=== PATIENT | male | born 1985 | race Caucasian/White ===

== ENCOUNTER 2020-02-27 02:36 | Inpatient (IN) ==
--- NOTE | 2020-02-27 02:55 | Emergency Department Note ---
History of Present Illness General Chief complaint: Chest Pain Stated complaint: chest pain History of Present Illness This 34-year-old presents to the ER complaining of right lower leg pain after he passed out tonight in the bathroom Location: Right lower leg Quality: Painful Severity: Moderate Duration: Tonight Timing: Tonight Context: Patient was concerned and came in Modifying factors: better with morphine; worse with palpation Patient states he woke up from sleep with chest burning and went to the [facility] in her breast Mylanta felt nauseous and passed out. When he came to he had an obvious lower leg injury. His chest pain had resolved. Patient states he was drinking moderate amount of beers last night. Does not normally drink beer. He states he is healthy with no medical problems. Patient denies numbness, tingling, abdominal pain, dyspnea, flulike illness, localized weakness, current chest pain. Patient states his only complaint now is the right lower leg pain. EMS gave him morphine. Patient states he last ate at 7 PM yesterday and was macaroni and cheese. Patient states he had some water at 2 AM and nothing since. Home Medications Home Medications Medication Instructions Recorded Confirmed Type fluoxetine 40 mg PO DAILY 02/27/20 02/27/20 History Allergies Allergy/AdvReac Type Severity Reaction Status Date / Time Penicillins Allergy Unknown Unknown Verified 02/27/20 02:57 Past Med/Surg History Medical History (Updated 02/27/20 @ 03:30 by Zoraida Cohen PA-C) Dizziness Vitamin D deficiency Surgical History No pertinent past surgical history Family History Father Colorectal cancer Aunt Colorectal cancer Denies family history of Ulcerative colitis Social History Preferred Language: Thai Visual Impairment: No Limitations Hearing Ability: Normal Porcelain Mixer Required: No marital status: Single Current Living Situation: Alone current occupational status: employed and student current occupation: grad student Feels Safe at Home: Yes Smoking Status: Current every day smoker Tobacco Type: e-cigarettes ; Hx Alcohol Use: Yes Alcohol type: wine Alcohol Intake Frequency: Weekly Hx Substance Use: No Childhood Exposure to Second-Hand Smoke: Yes Diet Comment: Just eats meat caffeine: Yes during the past year weight has: decreased > 10 lbs Dental Care, Regularly: No Physical Activity Frequency: 1-2 Times per Week Seatbelt Use: never Sunscreen Use: No Review of Systems A total of 10 systems reviewed and were otherwise negative Physical Exam Vital Signs Vital Signs - 24 hr 02/27/20 02:39 02/27/20 02:55 02/27/20 03:11 Temperature 36.8 C Temperature Source Oral Pulse Rate 107 H Pulse Rate [Finger] 101 H Respiratory Rate 20 20 Respiratory Effort / Characteristics Non-Labored Spontaneous Respiratory Depth Normal Blood Pressure 100/63 Blood Pressure [Right Arm] 109/55 L Blood Pressure Mean 75 Blood Pressure Mean [Right Arm] 73 Pulse Oximetry 96 96 96 Oxygen Delivery Method Room Air Room Air Room Air Sepsis Action Taken by Nursing No Action Required VITALS: Vitals are noted on the nurse's note and reviewed by myself. Vital signs stable. GENERAL: Pleasant male with an obvious right lower leg injury, in no acute distress, nondiaphoretic, well-developed well-nourished. SKIN: The skin was without rashes, erythema, edema, or bruising. There is no tenting of the skin. Capillary reflex less than 2 seconds. HEAD: Normocephalic atraumatic. EARS: External auditory canals clear, tympanic membranes pearly velasco without erythema or effusion bilaterally. EYES: Pupils equal round and reactive to light and accommodation. Conjunctivae without injection, sclerae without icterus. Extraocular movements intact. NOSE: Patent, turbinates without inflammation or discharge. No sinus tenderness. MOUTH: Mucous membranes mildly dry. Pharynx without erythema or exudate. Uvula midline. Airway patent. Tongue does not deviate. NECK: Supple without nuchal rigidity. No lymphadenopathy. No thyromegaly. Cervical spine is nontender. No JVD. HEART: Regular rate and rhythm without murmurs gallops or rubs. LUNGS: Clear to auscultation bilaterally without wheezes, rales or rhonchi. No retractions or accessory muscle use. ABDOMEN: Positive bowel sounds x 4. Normal tympanic percussion. Soft, non tender, without masses or organomegaly. Longoria sign negative. No guarding or rebound tenderness. No CVA tenderness MUSCULOSKELETAL: No muscle atrophy noted. Right lower leg distal tibia with obvious fracture, tender to palpation, right knee ankle and foot nontender to palpation. Pedal pulses +2 equal present bilaterally. NEURO: Patient was alert and oriented to person place and time. Normal s ensation to light and sharp touch. No focal neurological deficits. Course Administered Medications Sodium Chloride (Nss 1000ml) 1,000 mls @ 999 mls/hr IV .Q1H1M ENMANUEL Stop: 02/27/20 04:00 Last Admin: 02/27/20 02:58 Dose: 999 mls/hr Documented by: [id number] Medical Decision Making Medical Records Attestation: I reviewed the patient's medical records. Home Medications Current Medication List: was personally reviewed by me Laboratory Data Attestation: I reviewed the patient's lab results. Result diagrams: 02/27/20 02:45 02/27/20 02:45 Lab Results 02/27/20 02/27/20 02/27/20 Range/Units 02:45 02:45 02:45 WBC 6.64 (4.8-10.8) K/uL RBC 4.16 L (4.7-6.1) M/uL Hgb 13.2 L (14.0-18.0) g/dL Hct 39.4 L (42-52) % MCV 94.7 (80-100) fL MCH 31.7 (25-34) pg MCHC 33.5 (32-36) g/dL RDW Std Deviation 45.4 (36.4-46.3) fL RDW Coeff of Maricel 13.1 (11.5-14.5) % Plt Count 282 (130-400) K/uL MPV 9.0 (7.4-10.4) fL Immature Gran % (Auto) 0.2 % Neut % (Auto) 55.4 % Lymph % (Auto) 32.4 % [place] % (Auto) 5.6 % Eos % (Auto) 5.3 % Baso % (Auto) 1.1 % Neut # (Auto) 3.69 (1.4-6.5) K/uL Lymph # (Auto) 2.15 (1.2-3.4) K/uL [place] # (Auto) 0.37 (0.11-0.59) K/uL Eos # (Auto) 0.35 (0-0.5) K/uL Baso # (Auto) 0.07 (0-0.2) K/uL Immature Gran # (Auto) 0.01 (0.00-0.02) K/uL PT 10.3 (9.0-12.0) Seconds INR 1.0 (0.9-1.1) APTT 22.3 (21.0-31.0) Seconds PTT Ratio 0.8 Sodium 139 (136-145) mmol/L Potassium 3.3 L (3.5-5.1) mmol/L Chloride 108 H (98-107) mmol/L Carbon Dioxide 22 (21-32) mmol/L Anion Gap 9.0 (3-11) BUN 12 (7-18) mg/dl Creatinine 0.95 (0.6-1.4) mg/dl Est Cr Clr Drug Dosing 131.4 ml/min Est GFR ( Amer) 120.6 Est GFR (Non-Af Amer) 104.0 BUN/Creatinine Ratio 12.8 (10-20) Glucose 144 H (70-99) mg/dl Calcium 8.2 L (8.5-10.1) mg/dl Total Bilirubin 0.6 (0.2-1) mg/dl AST 33 (15-37) U/L ALT 77 (12-78) U/L Alkaline Phosphatase 63 (45-117) U/L Troponin I < 0.015 (0-0.045) ng/ml Total Protein 6.6 (6.4-8.2) gm/dl Albumin 3.4 (3.4-5.0) gm/dl Globulin 3.2 (2.5-4.0) gm/dl Albumin/Globulin Ratio 1.1 (0.9-2) Lipase 143 (73-393) U/L Ethyl Alcohol mg/dL (0-3) mg/dl 02/27/20 Range/Units 03:08 WBC (4.8-10.8) K/uL RBC (4.7-6.1) M/uL Hgb (14.0-18.0) g/dL Hct (42-52) % MCV (80-100) fL MCH (25-34) pg MCHC (32-36) g/dL RDW Std Deviation (36.4-46.3) fL RDW Coeff of Maricel (11.5-14.5) % Plt Count (130-400) K/uL MPV (7.4-10.4) fL Immature Gran % (Auto) % Neut % (Auto) % Lymph % (Auto) % [place] % (Auto) % Eos % (Auto) % Baso % (Auto) % Neut # (Auto) (1.4-6.5) K/uL Lymph # (Auto) (1.2-3.4) K/uL [place] # (Auto) (0.11-0.59) K/uL Eos # (Auto) (0-0.5) K/uL Baso # (Auto) (0-0.2) K/uL Immature Gran # (Auto) (0.00-0.02) K/uL PT (9.0-12.0) Seconds INR (0.9-1.1) APTT (21.0-31.0) Seconds PTT Ratio Sodium (136-145) mmol/L Potassium (3.5-5.1) mmol/L Chloride (98-107) mmol/L Carbon Dioxide (21-32) mmol/L Anion Gap (3-11) BUN (7-18) mg/dl Creatinine (0.6-1.4) mg/dl Est Cr Clr Drug Dosing ml/min Est GFR ( Amer) Est GFR (Non-Af Amer) BUN/Creatinine Ratio (10-20) Glucose (70-99) mg/dl Calcium (8.5-10.1) mg/dl Total Bilirubin (0.2-1) mg/dl AST (15-37) U/L ALT (12-78) U/L Alkaline Phosphatase (45-117) U/L Troponin I (0-0.045) ng/ml Total Protein (6.4-8.2) gm/dl Albumin (3.4-5.0) gm/dl Globulin (2.5-4.0) gm/dl Albumin/Globulin Ratio (0.9-2) Lipase (73-393) U/L Ethyl Alcohol mg/dL 23.0 H (0-3) mg/dl Imaging Data Attestation: I personally reviewed and interpreted this imaging study as follows: Blood Pressure Blood Pressure Findings: Normal blood pressure MDM Narrative Prior records/ancillary studies reviewed. Triage Nursing notes reviewed. Additional history obtained from EMS. The patient's history was concerning for syncope, chest pain and lower leg injury. Differential diagnosis: Etiologies such as fracture, dislocation, vasovagal event, infection, hypoglycemia, electrolyte abnormalities, cardiac sources, intracerebral event, toxicologic, neurologic, as well as others were entertained. Physical examination: As above ER treatment provided: IV hydration with normal saline On reassessment the patient felt better. An order was placed for continuous cardiac monitoring. The monitor shows a rate of 60-1 10 with a sinus rhythm. Diagnostics interpretation by me: ECG: Ordered for chest pain and syncope EKG: Normal sinus, normal levels, no acute ST-T wave changes, rate of 104. Impression sinus tachycardia interpreted by itself I think arrhythmia is unlikely. EKG shows normal sinus rhythm with no interval abnormalities such as QT prolongation or WPW. There are no findings to suggest Brugada syndrome. Cardiac monitoring in the emergency department reveals no tachycardic or bradycardic dysrhythmia. Hypertrophic cardiomyopathy was considered but there are no clear historical elements pointing toward this. EKG is not suggestive. The QRS voltage is not extremely large and there are no suggestive Q waves. The labs revealed negative troponin. Mild anemia. Type and screen ordered Cover test ordered and pending per orthopedics request for preop for surgery Imaging studies: Chest x-ray with no acute consolidation, pneumothorax or free air per my interpretation Ankle x-ray concerning for fibular fracture and distal third tibia fracture per my interpretation Tib-fib x-ray concerning for proximal fibular fracture and distal third tibia fracture that is oblique and distracted per my interpretation Repeat tib-fib x-ray shows minimal improvement with fracture alignment per my interpretation. The leg is quite unstable and seems to fall out of alignment quite easily. HEART SCORE: Hx: high/mod/low suspicion: 0 ECG: ST depression/nonspecific changes/normal: 0 Age: Greater than 65/45-64/less than 45: 0 Risk factors: (Hypertension, hyperlipidemia, diabetes, coronary disease, tobacco use, cocaine use): 1 Troponin: Greater than 2 times normal limits/1-2 times normal limits/normal: 0 Total: 1 Consultation: A consultation was placed with Dr. Mills from orthopedics. The case was discussed and diagnostics were reviewed. The patient was admitted to his service. He is requesting a rapid Randy test so we can do surgery later this morning or early this afternoon. Splinting Indication: Right lower leg fibular and tibial fractures Location: Right lower leg Type of fx: Displaced, closed and comminuted fracture of the tib-fib and fibula Verbal consent obtained. Risks and benefits were explained with the usual customary discussion. The injured extremity was identified. The patient was prepped and measured for the placement of a stirrup and posterior Ortho-glass splint. Splint applied in the standard fashion over a layer of webril and secured using an elastic bandage. Set into a position of function. Normal neurovascular status after placement verified by me. The patient tolerated the procedure well and the care of the splint was discussed with the patient/family. No complications. This appears to be consistent with extensive right lower leg fractures with chest pain and syncope. Patient was splinted as above. Orthopedic surgery was consulted and will admit the patient for surgery later this morning. Cover test was ordered. Patient was placed n.p.o. Maintenance fluids were hung. Patient is agreeable to treatment plan of admission. By the evaluation outlined above emergent etiologies such as infection, hypoglycemia, electrolyte abnormalities, cardiac sources, intracerebral event, toxicologic, neurologic,as well as others were deemed relatively unlikely. The pt informed about the findings as listed above. All questions were answered and pleased with the treatment. The chart was completed utilizing [employer] Speech voice recognition software. Grammatical errors, random word insertions, pronoun errors, and incomplete sentences are an occassional consequence of this system due to software limitations, ambient noise, and hardware issues. Any formal questions or concerns about the content, text, or information contained within the body of this dictation should be directly addressed to the physician material assistant for clarification. Impression & Plan Fracture tibia/fibula, Chest pain, Syncope Discharge Plan Visit Data Chief Complaint: Chest Pain Stated Complaint: chest pain ED Provider: Mila Bryan ED Midlevel Provider: Zoraida Cohen Discharge Problem: Fracture tibia/fibula, Chest pain, Syncope Patient Disposition: Admitted As Inpatient Condition: Good Forms Stand Alone Forms: ECO-SAFE Prescriptions Prescriptions: No Action fluoxetine 40 mg capsule 40 mg PO DAILY RF: 0 Referrals Referrals: [place],[facility] [Primary Care Provider] - Discharge Problem: Fracture tibia/fibula Qualifiers: Encounter type: initial encounter Fracture type: closed Laterality: right Qualified Code(s): S82.201A - Unspecified fracture of shaft of right tibia, initial encounter for closed fracture Chest pain Qualifiers: Chest pain type: unspecified Qualified Code(s): R07.9 - Chest pain, unspecified
[2020-02-27 02:58] LABS: Basophils # (auto) 0.07 K/uL (0-0.2); Basophils % (auto) 1.1 %; Eosinophils # (auto) 0.35 K/uL (0-0.5); Eosinophils % (auto) 5.3 %; Hematocrit (blood only) 39.4 % (42-52); Hemoglobin 13.2 g/dL (14.0-18.0); Immature Granulocytes # (auto) 0.01 K/uL (0.00-0.02); Immature Granulocytes % (auto) 0.2 %; Lymphocytes # (auto) 2.15 K/uL (1.2-3.4); Lymphocytes % (auto) 32.4 %; Mean Corpuscular Hemoglobin 31.7 pg (25-34); Mean Corpuscular Hgb Conc 33.5 g/dL (32-36); Mean Corpuscular Volume 94.7 fL (80-100); Monocytes # (auto) 0.37 K/uL (0.11-0.59); Monocytes % (auto) 5.6 %; Neutrophils # (auto) 3.69 K/uL (1.4-6.5); Neutrophils % (auto) 55.4 %; Platelet Count 282 K/uL (130-400); RDW Coefficient of Variation 13.1 % (11.5-14.5); RDW Standard Deviation 45.4 fL (36.4-46.3); Red Blood Count 4.16 M/uL (4.7-6.1); White Blood Count 6.64 K/uL (4.8-10.8)
[2020-02-27] MEDS ORDERED: SODIUM CHLORIDE 0.9% 1000ML 1,000 ML IV SCH ×2 (03:00→03:30)
[2020-02-27 03:14] LABS: Alanine Aminotransferase 77 U/L (12-78); Albumin Level 3.4 gm/dl (3.4-5.0); Aspartate Aminotransferase 33 U/L (15-37); BUN Creatinine Ratio 12.8 (10-20); Blood Urea Nitrogen 12 mg/dl (7-18); Calcium 8.2 mg/dl (8.5-10.1); Carbon Dioxide 22 mmol/L (21-32); Chloride 108 mmol/L (98-107); Creatinine Clr Calc Pharmacy 131.4 ml/min; Est GFR (African American) 120.6; Glucose 144 mg/dl (70-99); Lipase 143 U/L (73-393); Potassium 3.3 mmol/L (3.5-5.1); Sodium 139 mmol/L (136-145)
[2020-02-27 03:17] LABS: Partial Thromboplastin Ratio 0.8; Partial Thromboplastin Time 22.3 Seconds (21.0-31.0); Prothrombin Time 10.3 Seconds (9.0-12.0)
[2020-02-27 03:19] LABS: Albumin Globulin Ratio 1.1 (0.9-2); Alkaline Phosphatase 63 U/L (45-117); Bilirubin,Total 0.6 mg/dl (0.2-1); Globulin 3.2 gm/dl (2.5-4.0); Total Protein 6.6 gm/dl (6.4-8.2); Troponin I < 0.015 ng/ml (0-0.045)
[2020-02-27] MEDS ORDERED: FAMOTIDINE 20MG/5ML IV PUSH IV STA (03:38)
[2020-02-27] MEDS ORDERED: ONDANSETRON INJ 2 MG/ML 2 ML VIAL IV PRN ×3 (03:48→17:04)
[2020-02-27] MEDS ORDERED: MAGNESIUM HYDROXIDE SUSP 30 ML UDC PO PRN ×2 (03:48→17:04)
[2020-02-27] MEDS ORDERED: ACETAMINOPHEN 325 MG TAB PO PRN (03:48)
[2020-02-27] MEDS ORDERED: ALUMINUM/MAGNESIUM SUSP 30 ML UDC PO PRN ×2 (03:48→17:04)
[2020-02-27] MEDS: POTASSIUM CHLORIDE / WTR 10 MEQ/100 ML PLCT IV SCH ×2 (03:53→04:43)
[2020-02-27] MEDS ORDERED: INFLUENZA VIRUS QUAD VACCINE 0.5 ML SYR IM ONE (05:31)
[2020-02-27] MEDS ORDERED: INFLUENZA ADMINISTRATION CHARGE ONE (05:31)
[2020-02-27] MEDS: HYDROmorphone INJ 0.5 MG/0.5 ML SYR IV PRN ×2 (05:46→21:41)
[2020-02-27] MEDS: SODIUM CHLORIDE 0.9% 1000ML 1,000 ML IV SCH ×4 (05:48→18:51)
[2020-02-27] MEDS ORDERED: CEFAZOLIN 2000MG 2,000 MG/15 ML SYR IV SCH (06:00)
--- NOTE | 2020-02-27 06:51 | XRay Report ---
XR tibia fibula RT 2V CLINICAL HISTORY: Post splint. COMPARISON: Right tibia and fibula radiographs at February 27, 2020 2:51 AM. FINDINGS: Note is again made of an acute mildly displaced proximal right fibular fracture. There is a lso an oblique mildly displaced distal right fibular fracture. Alignment of these fractures is simila r to prior exam. Note is made of a displaced oblique fracture through the mid to distal diaphysis of the right tibia. Fracture is displaced 2.3 cm. Fracture displacement is slightly increased since exam of February 27, 2020 at 2:51 AM. A cast is noted. IMPRESSION: 1. Oblique displaced fracture of the mid to distal diaphysis of the right tibia. Fracture displacemen t increased since prior exam. 2. No change in appearance of the proximal and distal right fibular fractures. ACT 112: Negative or not required by law. Electronically signed by: Raymundo Barr M.D. 02/27/2020 6:50 AM
--- NOTE | 2020-02-27 06:52 | XRay Report ---
XR chest 1V portable CLINICAL HISTORY: Chest Pain COMPARISON STUDY: No previous studies for comparison. FINDINGS: Lung volumes are normal. Lungs are clear. There is no pneumothorax or pleural effusion. Car diac size is normal. Mediastinal contours are normal. There is no evidence for pulmonary edema. IMPRESSION: No acute cardiopulmonary findings. ACT 112: Negative or not required by law. Electronically signed by: Raymundo Barr M.D. 02/27/2020 6:50 AM
--- NOTE | 2020-02-27 06:53 | XRay Report ---
XR tibia fibula RT 2V CLINICAL HISTORY: fall, pain COMPARISON: None FINDINGS: There is an acute impacted proximal right fibular neck fracture that extends into the fibu lar head. There is also an acute oblique mildly displaced fracture of the distal right fibula. Note i s made of an oblique comminuted displaced fracture of the mid to distal diaphysis of the right tibia. Fracture is displaced 1.5 cm. IMPRESSION: 1. Oblique comminuted displaced fracture of the mid to distal diaphysis of the right tibia. 2. Acute impacted proximal right fibular fracture. 3. Acute mildly displaced oblique distal right fibular fracture. ACT 112: Negative or not required by law. Electronically signed by: Raymundo Barr M.D. 02/27/2020 6:52 AM
--- NOTE | 2020-02-27 06:55 | XRay Report ---
XR ankle RT min 3V routine CLINICAL HISTORY: fall, pain COMPARISON: None FINDINGS: Noted is made of an acute oblique distal right fibular fracture. There is mild medial ankl e mortise widening. An oblique is displaced fracture of the mid to distal diaphysis of the right tibi a is partially imaged on this exam. IMPRESSION: 1. Acute oblique mildly displaced distal right fibular fracture. 2. Mild medial ankle mortise widening. 3. Partially visualized displaced diaphyseal fracture of the right tibia. ACT 112: Negative or not required by law. Electronically signed by: Raymundo Barr M.D. 02/27/2020 6:53 AM
[2020-02-27] MEDS: DOCUSATE SODIUM 100 MG CAP PO SCH ×3 (08:31→20:20)
[2020-02-27] MEDS: FLUOXETINE HCL 20 MG CAP PO SCH (08:32)
--- NOTE | 2020-02-27 08:55 | History & Physical Report ---
Date of Service February 27, 2020 Assessment & Plan (1) Fracture tibia/fibula: Performed H&P on floor with patient. Reviewed consent and will be again reviewed and signed with Dr. Duque present in preop. Patient will undergo ORIF of Right Tibia fracture with intramedullary nailing and possible ORIF of Right distal fibular fracture later today. Patient understood risks of surgery and proceeding with intervention during the COVID-19 pandemic. Currently his is asymptomatic and had COVID testing with negative result. Encounter type: initial encounter Fracture type: closed Laterality: right Qualified Code(s): S82.201A - Unspecified fracture of shaft of right tibia, initial encounter for closed fracture; S82.401A - Unspecified fracture of shaft of right fibula, initial encounter for closed fracture History of Present Illness Chief Complaint: Right lower leg pain / deformity Primary Care Provider: [facility] Patient states he woke up from sleep with chest burning and went to the bathroom to ge some Mylanta. Patient felt nauseated and passed out. When he came to he had an obvious lower leg injury. His chest pain had resolved. Patient states he was drinking moderate amount of beers last night. Does not normally drink beer. He states he is healthy with no medical problems. Patient denies numbness, tingling, abdominal pain, dyspnea, flulike illness, localized weakn ess, current chest pain. Patient states his only complaint now is the right lower leg pain. EMS gave him morphine. Patient states he last ate at 7 PM yesterday and was macaroni and cheese. Patient states he had some water at 2 AM and nothing since. Allergies Allergy/AdvReac Type Severity Reaction Status Date / Time Penicillins Allergy Unknown Unknown Verified 02/27/20 02:57 Home Medications Home Medications Medication Instructions Recorded Confirmed Type fluoxetine 40 mg PO DAILY 02/27/20 02/27/20 History Past Med/Surg History Medical History Dizziness Vitamin D deficiency Surgical History No pertinent past surgical history Family History Father Colorectal cancer Aunt Colorectal cancer Denies family history of Ulcerative colitis Social History Preferred Language: Australian Communication Ability: Effective Visual Impairment: No Limitations Hearing Ability: Normal Auditor Internal Required: No Beliefs That Will Affect Care: None marital status: Single Current Living Situation: Significant Other current occupational status: employed and student current occupation: grad student Other Information That Helps Us Care for You: No Feels Safe at Home: Yes Safety Concerns: Feels Safe At This Time Smoking Status: Current some day smoker Tobacco Type: e-cigarettes ; Do You Dip or Chew Tobacco: No ; Second Hand Exposure: No ; Tobacco Cessation Education Requested by Patient: No Hx Alcohol Use: Yes Alcohol type: beer, wine and hard liquor Alcohol Intake Frequency: Weekly Hx Substance Use: No Childhood Exposure to Second-Hand Smoke: Yes Diet Comment: Just eats meat caffeine: Yes during the past year weight has: decreased > 10 lbs Dental Care, Regularly: No Physical Activity Frequency: 1-2 Times per Week Seatbelt Use: never Sunscreen Use: No Physical Exam Constitutional: well developed, well nourished, healthy appearing and comfortable Eyes: PERRL, conjunctivae normal, anicteric sclerae EOM intact bilaterally ENMT: Throat: uvula midline No edema, erythema or exudate Respiratory: normal respiratory effort, lungs clear to auscultation Cardiovascular: RRR, no murmur, no edema Gastrointestinal (Abdomen): normal bowel sounds, soft, nontender, no hepatosplenomegaly Musculoskeletal: No muscle atrophy noted. Right lower leg distal tibia with obvious fracture with external rotation, tender to palpation over distal 1/3 of tibia and distal fibula, right knee and foot nontender to palpation. Pedal pulses +2 equal present bilaterally. NV intact. Toes mobile. Skin: no rashes, warm and dry Neurologic: CN's II-XI intact bilaterally Psychiatric: Orientation: alert and oriented x 3 Results & Data Vital Signs (Past 12 Hours) Vital Signs Temp Pulse Pulse Resp BP BP Pulse Ox 02/27/20 07:07 36.6 C 97 H 17 99/59 L 97 02/27/20 05:00 36.4 C L 108 H 14 119/66 99 02/27/20 04:30 95 H 20 96/43 L 94 02/27/20 03:50 92 H 20 92/43 L 94 02/27/20 03:11 101 H 20 109/55 L 96 02/27/20 02:55 96 02/27/20 02:39 36.8 C 107 H 20 100/63 96 Pulse Ox 02/27/20 07:07 02/27/20 05:00 99 02/27/20 04:30 02/27/20 03:50 02/27/20 03:11 02/27/20 02:55 02/27/20 02:39 Laboratory Results Lab Results 02/27/20 02/27/20 02/27/20 Range/Units 02:45 02:45 02:45 WBC 6.64 (4.8-10.8) K/uL RBC 4.16 L (4.7-6.1) M/uL Hgb 13.2 L (14.0-18.0) g/dL Hct 39.4 L (42-52) % MCV 94.7 (80-100) fL MCH 31.7 (25-34) pg MCHC 33.5 (32-36) g/dL RDW Std Deviation 45.4 (36.4-46.3) fL RDW Coeff of Maricel 13.1 (11.5-14.5) % Plt Count 282 (130-400) K/uL MPV 9.0 (7.4-10.4) fL Immature Gran % (Auto) 0.2 % Neut % (Auto) 55.4 % Lymph % (Auto) 32.4 % [place] % (Auto) 5.6 % Eos % (Auto) 5.3 % Baso % (Auto) 1.1 % Neut # (Auto) 3.69 (1.4-6.5) K/uL Lymph # (Auto) 2.15 (1.2-3.4) K/uL [place] # (Auto) 0.37 (0.11-0.59) K/uL Eos # (Auto) 0.35 (0-0.5) K/uL Baso # (Auto) 0.07 (0-0.2) K/uL Immature Gran # (Auto) 0.01 (0.00-0.02) K/uL PT 10.3 (9.0-12.0) Seconds INR 1.0 (0.9-1.1) APTT 22.3 (21.0-31.0) Seconds PTT Ratio 0.8 Sodium 139 (136-145) mmol/L Potassium 3.3 L (3.5-5.1) mmol/L Chloride 108 H (98-107) mmol/L Carbon Dioxide 22 (21-32) mmol/L Anion Gap 9.0 (3-11) BUN 12 (7-18) mg/dl Creatinine 0.95 (0.6-1.4) mg/dl Est Cr Clr Drug Dosing 131.4 ml/min Est GFR ( Amer) 120.6 Est GFR (Non-Af Amer) 104.0 BUN/Creatinine Ratio 12.8 (10-20) Glucose 144 H (70-99) mg/dl Calcium 8.2 L (8.5-10.1) mg/dl Total Bilirubin 0.6 (0.2-1) mg/dl AST 33 (15-37) U/L ALT 77 (12-78) U/L Alkaline Phosphatase 63 (45-117) U/L Troponin I < 0.015 (0-0.045) ng/ml Total Protein 6.6 (6.4-8.2) gm/dl Albumin 3.4 (3.4-5.0) gm/dl Globulin 3.2 (2.5-4.0) gm/dl Albumin/Globulin Ratio 1.1 (0.9-2) Lipase 143 (73-393) U/L Ethyl Alcohol mg/dL (0-3) mg/dl COVID-19 PCR (Negative) Blood Type Antibody Screen 02/27/20 02/27/20 02/27/20 Range/Units 03:08 03:10 03:30 WBC (4.8-10.8) K/uL RBC (4.7-6.1) M/uL Hgb (14.0-18.0) g/dL Hct (42-52) % MCV (80-100) fL MCH (25-34) pg MCHC (32-36) g/dL RDW Std Deviation (36.4-46.3) fL RDW Coeff of Maricel (11.5-14.5) % Plt Count (130-400) K/uL MPV (7.4-10.4) fL Immature Gran % (Auto) % Neut % (Auto) % Lymph % (Auto) % [place] % (Auto) % Eos % (Auto) % Baso % (Auto) % Neut # (Auto) (1.4-6.5) K/uL Lymph # (Auto) (1.2-3.4) K/uL [place] # (Auto) (0.11-0.59) K/uL Eos # (Auto) (0-0.5) K/uL Baso # (Auto) (0-0.2) K/uL Immature Gran # (Auto) (0.00-0.02) K/uL PT (9.0-12.0) Seconds INR (0.9-1.1) APTT (21.0-31.0) Seconds PTT Ratio Sodium (136-145) mmol/L Potassium (3.5-5.1) mmol/L Chloride (98-107) mmol/L Carbon Dioxide (21-32) mmol/L Anion Gap (3-11) BUN (7-18) mg/dl Creatinine (0.6-1.4) mg/dl Est Cr Clr Drug Dosing ml/min Est GFR ( Amer) Est GFR (Non-Af Amer) BUN/Creatinine Ratio (10-20) Glucose (70-99) mg/dl Calcium (8.5-10.1) mg/dl Total Bilirubin (0.2-1) mg/dl AST (15-37) U/L ALT (12-78) U/L Alkaline Phosphatase (45-117) U/L Troponin I (0-0.045) ng/ml Total Protein (6.4-8.2) gm/dl Albumin (3.4-5.0) gm/dl Globulin (2.5-4.0) gm/dl Albumin/Globulin Ratio (0.9-2) Lipase (73-393) U/L Ethyl Alcohol mg/dL 23.0 H (0-3) mg/dl COVID-19 PCR NEGATIVE (Negative) Blood Type A Positive Antibody Screen NEGATIVE Code Status & VTE Plan VTE Prophylaxis Plan VTE Prophylaxis will be ordered: Yes
[2020-02-27] MEDS: PANTOprazole 40 MG TAB PO SCH (10:27)
--- NOTE | 2020-02-27 11:22 | Anesthesiology Consultation ---
Date of Service February 27, 2020 Assessment & Plan (1) Encounter for pre-operative examination: Chart Review Chart Review: Acceptable Risk for Surgery Consults Requested none ASA ASA2 Proposed Anesthesia Anesthesia Type: General Risk / Benefits Reviewed With: PT / POA / Parent / Guardian, Accepts Plan and Informed Consent Obtained History Surgery Operation Date: 02/27/20 07:10 Proposed Procedures p Right Intramedullary Nail Tibia - Buck Duque MD s Possible Right Open Reduction Internal Fixation Fibula - Buck Duque MD Height/Weight Height: 6 ft Weight: 97.6 kg Allergies Allergy/AdvReac Type Severity Reaction Status Date / Time Penicillins Allergy Unknown Unknown Verified 02/27/20 02:57 Medications Home Medications Medication Instructions Recorded Confirmed Last Taken fluoxetine 40 mg PO DAILY 02/27/20 02/27/20 Unknown Active Medications Generic Name Dose Route Start Last Admin Trade Name Freq PRN Reason Stop Dose Admin Acetaminophen 650 mg 02/27/20 03:48 02/27/20 08:31 Tylenol PO 03/28/20 03:47 650 mg Q6H PRN Administration Fever or Headache Docusate Sodium 100 mg 02/27/20 09:00 02/27/20 08:31 Colace PO 03/28/20 08:59 100 mg BID ENMANUEL Administration Fluoxetine HCl 40 mg 02/27/20 09:00 02/27/20 08:32 Prozac PO 03/28/20 08:59 40 mg DAILY ENMANUEL Administration Hydromorphone HCl 0.5 mg 02/27/20 03:48 02/27/20 05:46 Dilaudid IV 03/12/20 03:47 0.5 mg Q1H PRN Administration Pain Sodium Chloride 1,000 mls @ 150 mls/hr 02/27/20 03:48 02/27/20 12:30 Nss 1000ml IV 03/28/20 03:47 Infused .[id number] ENMANUEL Infusion Pantoprazole Sodium 40 mg 02/27/20 09:00 02/27/20 10:27 Protonix PO 03/28/20 08:59 40 mg QAM ENMANUEL Administration NPO Date Last Intake of Fluids: 02/27/20 Time Last Intake of Fluids: 05:00 Date Last Intake of Solids: 02/26/20 Time Last Intake of Solids: 19:00 Past Medical History Medical History Dizziness Vitamin D deficiency Exercise / Class Metabolic Activity II 4-5 Yardwork/Stairs/Walk up hill Past Family History Family History Father Colorectal cancer Aunt Colorectal cancer Denies family history of Ulcerative colitis Past Surgical History Surgical History No pertinent past surgical history Past Anesthesia History No Hx of Anesthesia Complications and No Family Hx of Anesthesia Complications History of PONV No Hx of Motion Sickness Social History Smoking Status: Current some day smoker tobacco type: e-cigarettes Do You Dip or Chew Tobacco: No Hx Alcohol Use: Yes Alcohol type: beer, wine and hard liquor alcohol intake frequency: holidays/special occasions only Hx Substance Use: No Review of Systems Negative for chest pain or shortness of breath. Patient denies active symptoms of GERD. Physical Exam Vital Signs Last Vital Signs Temp 36.6 C 02/27/20 07:07 Pulse 97 H 02/27/20 07:07 Resp 17 02/27/20 07:07 BP 99/59 L 02/27/20 07:07 Pulse Ox 97 02/27/20 07:07 Constitutional not obese ENMT Mouth: no TMJ abnormality and oral opening not small Thyromental Distance: > or= 3.5 Finger Breadths Mallampati Class: I Neck normal visual inspection; neck extension not limited Respiratory normal respiratory effort Auscultation: lungs clear to auscultation bilaterally Cardiovascular Rate/Rhythm: regular rate and regular rhythm Heart Sounds: no murmur Neurologic right leg immobilized Psychiatric Orientation: alert and oriented x 3 Testing Laboratory Results 02/27/20 02:45 02/27/20 02:45 PT 10.3 Seconds (9.0-12.0) 02/27/20 02:45 INR 1.0 (0.9-1.1) 02/27/20 02:45 APTT 22.3 Seconds (21.0-31.0) 02/27/20 02:45 Blood Type A Positive 02/27/20 03:10 Antibody Screen NEGATIVE 02/27/20 03:10 Electrocardiogram Date: 02/27/20 Findings: + ST @ (106)
[2020-02-27] MEDS ORDERED: DEXAMETHASONE SOD INJ 4 MG/ML VIAL ONE (12:23)
[2020-02-27] MEDS ORDERED: PROPOFOL IV EMULSION 10 MG/ML 20 ML VIAL IV ONE (12:23)
[2020-02-27] MEDS ORDERED: GLYCOPYRROLATE 0.2 MG/ML VIAL ONE (12:23)
[2020-02-27] MEDS ORDERED: ONDANSETRON INJ 2 MG/ML 2 ML VIAL ONE (12:23)
[2020-02-27] MEDS ORDERED: NEOSTIGMINE METHYLSULFATE 5 MG/5 ML SYR ONE (12:23)
[2020-02-27] MEDS ORDERED: LIDOCAINE HCL 2% 2 ML VIAL/AMP(20MG/ML) INFIL ONE (12:23)
[2020-02-27] MEDS ORDERED: MIDAZOLAM HCL 1 MG/ML 2ML VIAL ONE (12:23)
[2020-02-27] MEDS ORDERED: ROCURONIUM BROMIDE 10 MG/ML 5 ML VIAL IV ONE ×3 (12:23→15:30)
[2020-02-27] MEDS ORDERED: HYDROmorphone INJ 2 MG/ML SYR/VIAL ONE (12:23)
[2020-02-27] MEDS ORDERED: SODIUM CHLORIDE 0.9% INJ 10 ML VIAL ONE (12:39)
[2020-02-27] MEDS ORDERED: ATROPINE SULFATE 0.1 MG/ML 10ML SYR IV PRN (12:47)
[2020-02-27] MEDS ORDERED: fentaNYL citrate 100 MCG/2 ML VIAL IV PRN (12:47)
[2020-02-27] MEDS ORDERED: ePHEDrine sulfate 50 MG/ML AMP IV PRN (12:47)
[2020-02-27] MEDS ORDERED: PROMETHAZINE HCL 12.5 MG in SODIUM CHLORIDE 0.9% 50 ML IV PRN (12:47)
[2020-02-27] MEDS ORDERED: HYDROmorphone INJ 2 MG/ML SYR/VIAL IV PRN (12:47)
[2020-02-27] MEDS ORDERED: KETAMINE HCL INJ 50 MG/ML 10 ML VIAL ONE (13:29)
[2020-02-27] MEDS ORDERED: fentaNYL citrate 100 MCG/2 ML VIAL ONE (16:38)
--- NOTE | 2020-02-27 16:48 | Fluoroscopy Report ---
FL tibia/fibula RT 2V CLINICAL HISTORY: RIGHT IM NAIL TIB/FIB COMPARISON STUDY: 02/27/2020 FLUOROSCOPY TIME: 296 seconds. NUMBER OF FLUOROSCOPIC IMAGES: 8 FINDINGS: 8 intraoperative fluoroscopic spot images demonstrate internal fixation of a tibial fractur e with intramedullary nia and locking nails. In addition there is threaded screw fixating an intra-ar ticular distal tibial fracture. The proximal distal fibular fractures appear similar to the preceding study. IMPRESSION: Intraoperative fluoroscopic spot images obtained during internal fixation of tibial frac tures. ACT 112: Negative or not required by law. Electronically signed by: Paulo Gilmore M.D. 02/27/2020 4:46 PM
--- NOTE | 2020-02-27 16:55 | Post Operative Brief Note ---
Immediate Post Op Note v1 Date of Surgery February 27, 2020 Pre & Post Diagnosis Operation Date: 02/27/20 07:10 Pre-Op Diagnosis: RIGHT TIBIA/FIBULA FRACTURE, posterior malleolus fracture Post-Op Diagnosis: RIGHT TIBIA/FIBULA FRACTURE, posterior malleolus fracture I identified the patient and participated in the time-out.: Yes Procedure Operation Date: 02/27/20 07:10 Actual Procedures p Right Intramedullary Nail Tibia (Right) - Buck Duque MD s Right Open Reduction Internal Fixation of Posterior Malleolus(Right) - Buck Duque MD Surgeon Buck Duque MD Criminal Legal Assistant Steve Bentley MD and FRANKIE Becerril PA-C Estimated Blood Loss 100 Findings Consistent with Post-Op Diagnosis Fluids 2600 cc Anesthesia Type General Complications none Disposition Accompanied Patient To Recovery: No Disposition: Recovery Room
--- NOTE | 2020-02-27 17:03 | Operative Report ---
Post Operative Report Pre & Post Diagnosis Operation Date: 02/27/20 07:10 Pre-Op Diagnosis: RIGHT TIBIA/FIBULA FRACTURE Post-Op Diagnosis: RIGHT TIBIA/FIBULA FRACTURE I identified the patient and participated in the time-out.: Yes Procedure Operation Date: 02/27/20 07:10 Actual Procedures p Right Intramedullary Nail Tibia (Right) - Buck Duque MD s Right Open Reduction Internal Fixation of Posterior Malleolus(Right) - Buck Duque MD Surgeon Buck Duuqe MD Hatchery Supervisor Steve Bentley MD and FRANKIE Becerril PA-C Estimated Blood Loss 100 Findings Consistent with Post-Op Diagnosis Specimens none Complications none Disposition Accompanied Patient To Recovery: Yes Disposition: Recovery Room Description of Procedure I was present during the entire case assisting with positioning, draping, retraction, wound closure, dressing and splint application. Fellow was also present. I served as an extra set of hands. Please see Dr. Duque procedure note for specifics of the case. I attest to the content of the Intraoperative Record and any orders documented therein. Any exceptions are noted below.
[2020-02-27] MEDS ORDERED: OXYCODONE HCL IR 5 MG TAB (IMMEDIATE RELEASE) PO PRN (17:04)
[2020-02-27] MEDS ORDERED: NALOXONE HCL 0.4 MG/1 ML VIAL/CARP IV PRN (17:04)
[2020-02-27] MEDS ORDERED: METOCLOPRAMIDE HCL INJ 5 MG/ML 2 ML VIAL IV PRN (17:04)
[2020-02-27] MEDS ORDERED: DiphenhydrAMINE HCL 50 MG/ML VIAL IV PRN (17:04)
[2020-02-27] MEDS ORDERED: bisacodyL 10 MG SUPP PR PRN (17:04)
--- NOTE | 2020-02-27 17:21 | Anesthesiology Progress Note ---
Date of Service February 27, 2020 Anesthesia Post Procedure Vital Signs Vital Signs: Temp Pulse Pulse Resp BP BP Pulse Ox 02/27/20 17:15 83 18 130/82 99 02/27/20 17:07 36.4 C L 100 H 18 146/81 H 100 02/27/20 12:33 36.7 C 76 18 114/71 100 02/27/20 07:07 36.6 C 97 H 17 99/59 L 97 02/27/20 05:00 36.4 C L 108 H 14 119/66 99 02/27/20 04:30 95 H 20 96/43 L 94 02/27/20 03:50 92 H 20 92/43 L 94 02/27/20 03:11 101 H 20 109/55 L 96 02/27/20 02:55 96 02/27/20 02:39 36.8 C 107 H 20 100/63 96 Pulse Ox 02/27/20 17:15 02/27/20 17:07 02/27/20 12:33 02/27/20 07:07 02/27/20 05:00 99 02/27/20 04:30 02/27/20 03:50 02/27/20 03:11 02/27/20 02:55 02/27/20 02:39 Pain Intensity Right Ankle: Pain Intensity: 5 Transfer of Care Handoff Completed per policy Notes Mental Status: alert / awake / arousable Patient Amnestic to Procedure: Yes Nausea / Vomiting: adequately controlled Pain: adequately controlled Airway Patency, RR, SpO2: stable & adequate BP & HR: stable & adequate Hydration State: stable & adequate Anesthetic Complications: no major complications apparent
--- NOTE | 2020-02-27 17:27 | Operative Report ---
Post Operative Report Pre & Post Diagnosis Operation Date: 02/27/20 07:10 Pre-Op Diagnosis: RIGHT TIBIA/FIBULA FRACTURE Post-Op Diagnosis: RIGHT TIBIA/FIBULA FRACTURE I identified the patient and participated in the time-out.: Yes Procedure Operation Date: 02/27/20 07:10 Actual Procedures p Right Intramedullary Nail Tibia (Right) - Buck Duque MD s Right Open Reduction Internal Fixation of Posterior Malleolus(Right) - Buck Duque MD Surgeon Buck Duque MD Ex Assistant/Program Director Steve Bentley MD and FRANKIE Becerril PA-C Estimated Blood Loss 100 Findings Consistent with Post-Op Diagnosis Specimens None Complications none Disposition Accompanied Patient To Recovery: Yes Disposition: Recovery Room Description of Procedure Supine, standard prep and drape, time out Right Intramedullary Nail Tibia and screw fixation of Posterior Malleolus Please see Dr Duque's procedure notes for specific details I was present throughout the case, assisted for wound closure and transferred the patient to PACU in stable condition I attest to the content of the Intraoperative Record and any orders documented therein. Any exceptions are noted below.
--- NOTE | 2020-02-27 17:32 | XRay Report ---
XR tibia fibula RT 2V CLINICAL HISTORY: Fracture status post internal fixation COMPARISON: 02/27/2020 DISCUSSION: There is no change in alignment of the essentially nondisplaced proximal and distal fibul ar fractures. The spiral fracture of the tibia at the junction of middle and distal one third has bee n fixated with an intramedullary nia with interlocking screws. There is an additional screw fixating an intra-articular fracture of the distal tibia. There is been application of a plaster cast. IMPRESSION: Internally fixated fractures as described above. ACT 112: Negative or not required by law. Electronically signed by: Paulo Gilmore M.D. 02/27/2020 5:31 PM
--- NOTE | 2020-02-27 18:37 | Operative Report (OR) ---
DATE OF OPERATION: 02/27/2020 PREOPERATIVE DIAGNOSES: Closed right tibial fracture and posterior malleolus fracture with fibula fractures proximally and distally and deltoid ligament disruption. POSTOPERATIVE DIAGNOSES: Closed right tibial fracture and posterior malleolus fracture with fibula fractures proximally and distally and deltoid ligament disruption. OPERATIONS PERFORMED: 1. Intramedullary nailing of right closed tibia fracture. 2. Open reduction and internal fixation of right ankle posterior malleolus fracture. SURGEON: Buck Duque MD. ASSISTANTS: Steve Bentley MD and Victoria Becerril PA-C. ESTIMATED BLOOD LOSS: 100 mL. INTRAVENOUS FLUIDS: 2600 mL of crystalloid. SPECIMENS: None. COMPLICATIONS: None. IMPLANTS: 1. One Synthes 11 mm diameter titanium cannulated tibial nail, 360 mm in length. 2. Four cross-locking screws measuring 34, 36, 52 and 40 mm in diameter. 3. Single 4.0 cancellous screw measuring 60 mm. 4. A 10 mm titanium end cap. INDICATIONS: Mr. Broderick is a 34-year-old male who passed out walking to the bathroom at his home yesterday evening. When he came to, he had pain and deformity in his right lower leg. He was brought to the Emergency Room where x-rays were obtained demonstrating a spiral fracture with suspected extension into the ankle joint through a posterior malleolus fracture as well as proximal and distal fibula fractures. On the ankle x-ray, he also had some widening of the medial clear space suspicious for a deltoid ligament disruption. I had a long discussion with him about the risks and benefits of surgery, alternatives to surgery and expected outcomes. After reviewing all these, he elected to proceed with surgery. All questions were answered. Informed consent was signed. OPERATIVE FINDINGS: The tibia fracture was stabilized using a Synthes titanium nail. Prior to impacting the nail, we did stabilize the posterior malleolus fracture with an anterior medial to posterolateral 4.0 cancellous screw. Further fixation of the posterior malleolus fracture was achieved through our most distal screw and the nail, which also traversed in an anteromedial to posterolateral direction. A total of 2 cross-locking screws were placed proximal and distal to the fracture. After achieving an anatomic reduction of the tibia fracture, the fibula fractures were anatomically reduced. The medial clear space widening was eliminated. DESCRIPTION OF THE OPERATION: The patient was identified in the preoperative holding area where his surgical site was marked. He was brought back to the main operating room where he was placed on the Reji table and all bony prominences were padded. General anesthesia was administered. A bump was placed underneath the operative hip. The leg was prepped and draped in the normal sterile fashion. Prior to incision, a multidisciplinary timeout was called. All in the room were in agreement. I began by inspecting the patient's skin, which showed him to have some bruising at the fracture site, but no elaina openings. We then flexed the knee to 45 degrees and made our incision from the inferior pole of the patella extending distally for a distance of 3 cm over the midportion of the patellar tendon. We dissected down to the level of paratenon. Hemostasis was ensured. Full thickness flaps were created. We then incised directly through the peritenon and the patellar tendon into the retropatellar space. This was extended proximally and distally for a length of approximately 4 cm. We then obtained our starting position on the AP fluoroscopic view with a guidewire. Once this was optimized, the knee was flexed up and we obtained a lateral view again optimizing our starting position. Once this was optimized on both views. We then drove the guidewire into the proximal tibia. We checked our position again with fluoroscopy and then used the entry reamer to ream to the prescribed depth. Next, the guidewire was bent at its tip and then inserted into the proximal tibia. This was advanced all the way down to the level of the fracture. We then reamed the proximal fragment. We started with an 8.5 reamer and then reamed all the way up to an 11.5 mm reamer. We then reduced the fracture under fluoroscopic guidance and then advanced the K-wire across the fracture. Then under fluoroscopic guidance, we continued to advance the guidewire to the center-center position on the AP and lateral fluoroscopic views. We then gradually reamed up the distal fragments again starting at 8.5 mm reamer and advancing all the way up to an 11.5 mm reamer. We did not get a lot of chatter with this, so I elected to upsize him and continued to ream. We reamed up with a 12 and then the 12.5 mm reamers. Here we had nice chatter, so we elected to use an 11 mm diameter nail. At this point, we were able to clearly visualize a posterior malleolus fracture, which we had suspected from his injury films. Prior to placing the nail, I elected to stabilize the posterior malleolus fracture. We optimally visualized the fracture under fluoroscopic view and then made our incision just above the ankle joint and distal to where the nail would be passing. We then incised through the skin and identified the tibialis anterior tendon. The fascia overlying the tibialis anterior was incised and we entered the tendon sheath. The tendon was retracted medially and we incised the floor of the tendon sheath onto the periosteum. The guidewire was then advanced under fluoroscopic guidance, so we achieved bicortical purchase. We then drilled with a 2.7 mm cannulated drill all the way across the fracture in bicortical fashion. We measured for our screw and then overdrilled the near cortex with a 3.5 mm drill. The 4.0 cancellous screw measuring 55 mm in length was then placed. This nicely stabilized the fracture, which showed an anatomic reduction of the articular surface. Once this was complete, we then flexed the knee up and impacted the nail down over the guidewire. We stopped the nail above the level of the previously placed posterior malleolus fracture screw. We were very happy with our reduction once the nail had crossed the fracture site. We checked his rotation and he matched his contralateral leg. We then placed our proximal cross-locking screws through the outrigger device using 2 static medial to lateral screws. We then used the perfect circles technique to first place an anterior medial to posterolateral screw through the distal aspect of the nail. This gave us additional purchase of the posterior malleolus fracture. We then placed a second screw through the most proximal medial to lateral screw hole in the distal aspect of the nail. Excellent fixation was obtained. At this point, we inspected our fibula fracture and we had an anatomic reduction. In the ankle joint, there was no further medial clear space widening. Final fluoroscopic views were obtained and we were very happy with our fracture reductions and hardware position. The wounds were irrigated with copious amounts of normal saline. The patellar tendon was repaired with 3-0 Vicryl sutures. 3-0 Vicryl sutures were used in the deep dermal layer. [place] were used for the skin. Sterile dressings were applied including Xeroform over the paulette, 4 x 4s, ABD pads and cast padding. He was placed into a plaster slab splint with the ankle held at neutral. He was then awoke from anesthesia and transferred to recovery room in stable condition. POSTOPERATIVE COURSE: The patient will be admitted overnight for pain control and monitoring. He will elevate his leg. We will have him on Xarelto for DVT prophylaxis for 4 weeks. He will be able to come out of his splint at 2 weeks and transition to a removable boot to start ankle range of motion but again will be nonweightbearing for the full 6 weeks due to the articular fracture. I attest to the content of the Intraoperative Record and any orders documented therein. Any exceptions are noted below. NANCY
[2020-02-27] MEDS: KETOROLAC TROMETHAMINE 15 MG/ML VIAL IV SCH ×2 (18:38→23:37)
[2020-02-27] MEDS: CEFAZOLIN 2000MG 2,000 MG/15 ML SYR IV SCH (20:20)
[2020-02-27] MEDS: OXYCODONE/ACETAMINOPHEN 5mg/325mg TAB PO PRN (20:28)
[2020-02-27] MEDS: ACETAMINOPHEN 500 MG TAB PO SCH (20:29)
[2020-02-27] MEDS ORDERED: SENNA 8.6 MG TAB PO SCH (21:00)
[2020-02-28] MEDS: OXYCODONE/ACETAMINOPHEN 5mg/325mg TAB PO PRN (02:55)
[2020-02-28] MEDS ORDERED: ENOXAPARIN INJ 40 MG/0.4 ML SYR SQ SCH (03:45)
[2020-02-28] MEDS: ACETAMINOPHEN 500 MG TAB PO SCH ×2 (03:59→11:32)
[2020-02-28] MEDS: SODIUM CHLORIDE 0.9% 1000ML 1,000 ML IV SCH (03:59)
[2020-02-28] MEDS: CEFAZOLIN 2000MG 2,000 MG/15 ML SYR IV SCH (04:45)
[2020-02-28] MEDS: KETOROLAC TROMETHAMINE 15 MG/ML VIAL IV SCH ×2 (04:46→11:28)
[2020-02-28 06:09] LABS: Hematocrit (blood only) 32.8 % (42-52); Hemoglobin 10.7 g/dL (14.0-18.0); Mean Corpuscular Hemoglobin 31.5 pg (25-34); Mean Corpuscular Hgb Conc 32.6 g/dL (32-36); Mean Corpuscular Volume 96.5 fL (80-100); Mean Platelet Volume 8.9 fL (7.4-10.4); Platelet Count 242 K/uL (130-400); RDW Coefficient of Variation 13.5 % (11.5-14.5); RDW Standard Deviation 47.3 fL (36.4-46.3); White Blood Count 9.48 K/uL (4.8-10.8)
--- NOTE | 2020-02-28 06:10 | Electrocardiogram Report ---
Test Reason : Blood Pressure : / mmHG Vent. Rate : 104 BPM Atrial Rate : 104 BPM P-R Int : 140 ms QRS Dur : 096 ms QT Int : 364 ms P-R-T Axes : 068 075 049 degrees QTc Int : 478 ms Sinus tachycardia Otherwise normal ECG No previous ECGs available Confirmed by Momo Boykin ([id number]) on 02/28/2020 6:10:24 AM Referred By: REFERRED SELF Confirmed By:Momo Boykin
[2020-02-28 06:58] LABS: BUN Creatinine Ratio 8.8 (10-20); Calcium 7.9 mg/dl (8.5-10.1); Creatinine Clr Calc Pharmacy 143.2 ml/min; Est GFR (African American) 129.9; Est GFR (Non-African American) 112.1
[2020-02-28] MEDS ORDERED: dexAMETHasone 4 MG TAB PO SCH (08:00)
[2020-02-28] MEDS ORDERED: RIVAROXABAN 10 MG TABLET PO SCH (09:00)
[2020-02-28] MEDS ORDERED: MULTIVITAMIN TAB PO SCH (09:00)
[2020-02-28] MEDS: DOCUSATE SODIUM 100 MG CAP PO SCH ×2 (09:20)
[2020-02-28] MEDS: FLUOXETINE HCL 20 MG CAP PO SCH (09:22)
--- NOTE | 2020-02-28 10:48 | Orthopedic Progress Note ---
Date of Service February 28, 2020 Assessment & Plan (1) Fracture tibia/fibula: Non-weightbearing on the Right leg x [address] with splint in place and with aide of crutches Ice with EZ wrap Elevate Keep Dry Discharge home today Work on ROM in knee, hip and toes Pain control with PO Oxycodone DVT prophy with Xarelto Supplemental pain control with Extra Strength Tylenol F/u at [facility] in 2 wks Call to confirm appointment with Victoria Becerril PA-C Admission and Anticipated Discharge Date Admission Date: February 27, 2020 Subjective This 34 yo M is day 1 s/p Right Tibia ORIF with intramedullary nailing and fixation of posterior malleolar fracture with screw placement. Patient states that his pain is well controlled with the PO medications. Currently he is resting in bed with the leg elevated and with EZ wrap in place. Patient denies CP, SOB, nausea, vomiting, fever, chills, sweats, lethargy or numbness/tingling in the Right LE. Review of Systems Review of Systems: All systems reviewed & are unremarkable except as noted in Subjective Physical Exam Physical Exam: Right LE: splint clean, dry and intact. Not removed. Patient able to actively flex at his knee to 75 degrees. Toes mobile and able to depict light sensation to touch on all pads. Mild tenderness to palpation over anterior surface of fracture site. Cap refill < 2 seconds. Results & Data ([facility]) Vital Signs (Past 12 Hours) Vital Signs Temp Pulse Resp BP BP Pulse Ox 02/28/20 07:32 36.7 C 75 16 104/63 100 02/28/20 03:27 36.5 C 74 18 101/64 100 02/27/20 23:10 36.5 C 89 20 110/68 99 Laboratory Results 02/28/20 02/28/20 Range/Units 05:53 05:53 WBC 9.48 (4.8-10.8) K/uL RBC 3.40 L (4.7-6.1) M/uL Hgb 10.7 L (14.0-18.0) g/dL Hct 32.8 L (42-52) % MCV 96.5 (80-100) fL MCH 31.5 (25-34) pg MCHC 32.6 (32-36) g/dL RDW Std Deviation 47.3 H (36.4-46.3) fL RDW Coeff of Maricel 13.5 (11.5-14.5) % Plt Count 242 (130-400) K/uL MPV 8.9 (7.4-10.4) fL Sodium 140 (136-145) mmol/L Potassium 4.0 D (3.5-5.1) mmol/L Chloride 109 H (98-107) mmol/L Carbon Dioxide 24 (21-32) mmol/L Anion Gap 7.0 (3-11) BUN 8 (7-18) mg/dl Creatinine 0.88 (0.6-1.4) mg/dl Est Cr Clr Drug Dosing 143.2 ml/min Est GFR ( Amer) 129.9 Est GFR (Non-Af Amer) 112.1 BUN/Creatinine Ratio 8.8 L (10-20) Glucose 125 H (70-99) mg/dl Calcium 7.9 L (8.5-10.1) mg/dl (1) Fracture tibia/fibula Encounter type: initial encounter Fracture type: closed Laterality: right Qualified Code(s): S82.201A - Unspecified fracture of shaft of right tibia, initial encounter for closed fracture; S82.401A - Unspecified fracture of shaft of right fibula, initial encounter for closed fracture
--- NOTE | 2020-02-28 10:52 | Discharge Summary ---
Date of Service February 28, 2020 Admission HPI Per Admitting Provider Patient states he woke up from sleep with chest burning and went to the bathroom to ge some Mylanta. Patient felt nauseated and passed out. When he came to he had an obvious lower leg injury. His chest pain had resolved. Patient states he was drinking moderate amount of beers last night. Does not normally drink beer. He states he is healthy with no medical problems. Patient denies numbness, tingling, abdominal pain, dyspnea, flulike illness, localized weakness, current chest pain. Patient states his only complaint now is the right lower leg pain. EMS gave him morphine. Patient states he last ate at 7 PM yesterday and was macaroni and cheese. Patient states he had some water at 2 AM and nothing since. Admission Exam Per Admitting Provider Physical Exam Constitutional well developed well nourished healthy appearing and comfortable Eyes PERRL, conjunctivae normal, anicteric sclerae EOM intact bilaterally ENMT Throat: uvula midline Respiratory normal respiratory effort, lungs clear to auscultation Cardiovascular RRR, no murmur, no edema Gastrointestinal (Abdomen) normal bowel sounds, soft, nontender, no hepatosplenomegaly Musculoskeletal No muscle atrophy noted. Right lower leg distal tibia with obvious fracture with external rotation, tender to palpation over distal 1/3 of tibia and distal fibula, right knee and foot nontender to palpation. Pedal pulses +2 equal present bilaterally. NV intact. Toes mobile. Skin no rashes, warm and dry Neurologic CN's II-XI intact bilaterally Orientation: alert and oriented x 3 Principal Diagnosis Closed spiral fracture of distal 1/3 of Right Tibia with posterior malleolar fracture; Proximal and distal fibula fractures Discharge Exam Right LE: splint clean, dry and intact. Not removed. Patient able to actively flex at his knee to 75 degrees. Toes mobile and able to depict light sensation to touch on all pads. Mild tenderness to palpation over anterior surface of fracture site. Cap refill < 2 seconds. Constitutional well developed, well nourished, healthy appearing and comfortable Eyes PERRL, conjunctivae normal, anicteric sclerae EOM intact bilaterally ENMT Throat: uvula midline Respiratory normal respiratory effort, lungs clear to auscultation Cardiovascular RRR, no murmur, no edema Gastrointestinal (Abdomen) normal bowel sounds, soft, nontender, no hepatosplenomegaly Skin no rashes, warm and dry Neurologic CN's II-XI intact bilaterally Psychiatric Orientation: alert and oriented x 3 Discharge Data Allergies Allergy/AdvReac Type Severity Reaction Status Date / Time Penicillins Allergy Unknown Unknown Verified 02/27/20 02:57 Consultations 02/27/20 03:28 ED Decision to Admit Stat 02/27/20 17:04 Consult Case Management - Discharge Planning Routine Procedures Performed Operation Date: 02/27/20 07:10 Actual Procedures p Right Intramedullary Nail Tibia (Right) - Buck Duque MD s Right Open Reduction Internal Fixation of Posterior Malleolus(Right) - Buck Duque MD Ordered Studies 02/27/20 FL fluoroscopy <1hr Routine FL tibia/fibula RT 2V Routine Hospital Course (1) Fracture tibia/fibula: Patient did very well overnight without complications. PO pain meds were adequate for control. Patient will be discharged today on Oxycodone and Tylenol for pain control, and Xarelto for DVT prophylaxis. He will f/u with Victoria Becerril PA-C in 2 wks. Non-weightbearing on the Right leg x [address] with splint in place and with aide of crutches Ice with EZ wrap Elevate Keep Dry Discharge home today Work on ROM in knee, hip and toes Pain control with PO Oxycodone DVT prophy with Xarelto Supplemental pain control with Extra Strength Tylenol F/u at [facility] in 2 wks Call to confirm appointment with Victoria Becerril PA-C Total Time Total Time Spent Total Time Spent (In Minutes): 20 mins Total Time Includes: Examination of the Patient, Discharge Planning and Medication Reconciliation Discharge Plan Discharge Items Patient Disposition: Home - Self-Care Reason For Visit: RIGHT TIBIA FRACTURE Discharge Diagnosis: Right Tibia Fracture Condition on Discharge: Good Activity: As commented below Lifting: None Bathing: Keep incision dry Bathing Comment: may shower tomorrow Sexual Activity: Wait until after follow-up appointment Exercise/Sports: Wait until after follow-up appointment Driving/Machine Use: No driving until cleared by marketing graphics specialist Weightbearing: Right non-weightbearing Weightbearing Comment: x [address] with [address]int in [address] and with aide of crutches Follow-up/Referrals: [place] [Primary Care Provider] - Diet: Regular Addtl Attending Provider Instructions: Post-operative Instructions Dear Patient and Family/Friends, Before you are discharged from the hospital, it is important to know what to expect when you get home after surgery. To that end, we have created this sheet of discharge instructions which covers many commonly asked questions. Make sure you go through this sheet in its entirety with your nurse before you are discharged. Please note that we will go over the specifics of your surgery and recovery when you return for your first post-operative visit. Sincerely, Dr. Duque Medications 1. Oxycodone 5 mg: take 1-2 tabs every 4-6 hours as needed for pain relief. A prescription for this medication will be sent to your pharmacy. 2. Xarelto 10 mg: take 1 tab daily for 28 days post operatively for blood clot prevention. A prescription for this will be sent to your pharmacy. 3. Extra Strength Tylenol 500 mg: take 2 tabs every 6 hours as needed for additional pain relief. Please purchase. Pain Expect to be in a fair amount of pain after surgery. Remember, our goal is not to eliminate your pain, but to make it tolerable. It is a good idea to stay ahead of your pain by taking the medications you were prescribed once you get home. Typically, the pain starts improving 3-7 days after surgery. You should start weaning off the narcotic pain medication (oxycodone, hydrocodone, h ydromorphone, morphine) as soon as your pain improves. Please call our office if your pain is not adequately controlled. Ice Ice your operative site at least 5 times a day for 15-30 minutes at a time. Make sure you have a thin cloth between the ice or cooling unit and your skin to prevent avalos bite. This is especially important if you received a nerve block. Continue icing your operative site for the first 5-7 days after surgery, then as needed. Diet/Nausea/Vomiting Start by drinking clear liquids and eating crackers. If you can tolerate this, then you may resume your normal diet. If you feel nauseated or vomit, take Zofran/ondansetron (if prescribed). Please call our office if you have intractable nausea or vomiting, or, if after hours, you may go to the Emergency Room for help. Constipation Constipation is a common side effect of narcotic pain medication. If you have not had a bowel movement within 2 days after surgery, we recommend purchasing an over the counter laxative such as Milk of Magnesia, Dulcolax, or Miralax from a local pharmacy, and taking it as instructed. Call our clinic if any questions. Slings and Braces If you were placed in a sling or brace, it must be worn at all times, including sleep. You may remove your sling or brace for physical therapy, home exercises, and showering. The length of time you will be in your brace and range of motion restrictions depends on what surgery you had; these details will be reviewed at your first post-operative appointment. Weight bearing and Range of Motion. Do not bear any weight through your operative extremity immediately after surgery. If you had upper extremity surgery, do not lift anything with that arm. If you are in a knee brace, keep it locked in place until your follow-up. We will discuss your weight bearing, range of motion, and lifting restrictions in detail at your first post-operative appointment. Continuous Passive Motion (CPM) Machine If you were prescribed a CPM machine, it will start after your first post- operative appointment, at which time we will give you instructions on the range of motion settings and duration of treatment Physical therapy You will be given a prescription for physical therapy or occupational therapy at your first post-operative appointment. Typically, patients start therapy within 1 week of surgery Wound care and showering We will inspect your wound at your first post-operative visit, and may do a dressing change at that time. Most patients will be in a water-proof dressing that is removed 14 days after surgery. It is normal to see some dried blood on the dressing. Do not remove your dressing, paper strips or sutures yourself unless you are given permission. Showering is allowed the day after surgery. Do not scrub or remove any dressings. The wound should not be submerged underwater (i.e. in a bathtub or pool) until 4 weeks after surgery [place] stockings If you were given white stockings, these are to be worn at all times except to shower (on both legs) for the first 2 weeks after surgery. Driving You may not drive while taking narcotic pain medication or while in a cast, sp lint, sling or brace. You, the patient, need to make the final determination about when you are safe to drive, however, the earliest you may consider driving after surgery is below: Hand/Wrist/Elbow Surgery: 3 days Shoulder Surgery: 2 weeks Hip,/Knee/Ankle Surgery: 4 weeks Fracture repair: 6 weeks Return to Work Your return to work depends on what surgery was done and what type of work you do. Please bring any paperwork your employer needs completed to your first post-operative visit. Also, bring a description of your job duties, as this helps us to understand what risks you may face at work. Travel Avoid long distance travel (greater than 1 hour) in airplanes and cars for the first 6 weeks after surgery. If you must travel, you need to have a Doppler ultrasound done before you travel to rule out a blood clot in your legs. Follow-up You should have a follow-up appointment already scheduled 1-2 days after surgery. If not, please contact our office to make this appointment before you leave the hospital. When to call the office It is normal to have swelling and bruising in the limb that was operated on. This will improve with time. It is also normal to have fevers for the first 2 days after surgery. Reasons you should call your doctor include: Uncontrolled pain; Nausea, vomiting, or constipation that does not improve with medication; Fevers over 101.5, chills, sweats; Drainage or bleeding from the wound; Foul odor; Spreading areas of redness; Any other concerns Pending Studies at Discharge: No Stand-Alone Forms: My [facility], Smoking Cessation Medications and DC Order Prescriptions: New oxycodone 5 mg tablet 5 mg PO Q6H MDD 1-2 tabs PO q 4-6 hrs Qty: 30 RF: 0 Xarelto 10 mg tablet 10 mg PO DAILY 28 Days Qty: 28 RF: 0 Continued fluoxetine 40 mg capsule 40 mg PO DAILY RF: 0 Discharge Orders: Discharge Order (Routine); Ordered 02/28/20 Ordered By: Bong Becerril Admission Data Admit Date/Time: 02/27/20 03:48 Attending Provider: Buck Duque Admit Provider: Buck Duque Primary Care Provider: [place] Other Providers: Buck Duque
[2020-02-28] MEDS: PANTOprazole 40 MG TAB PO SCH (10:54)
== END 2020-02-28 13:41 | disposition home or self-care (01) | DRG 494 ==
LOC: ED 02:36 → 3N 03:48